=== PATIENT | female | born 1990 | race Caucasian/White ===

== ENCOUNTER 2021-09-07 18:11 | Emergency (ER) | payer OTHER ==
[~2021-09-07 18:11] MED LIST: COLACE 100MG C100 MG PO
== END 2021-09-07 21:15 | disposition home or self-care (01) ==
LOC: ER1 18:11
DX: S61.216A Laceration without foreign body of right little finger without damage to nail, initial encounter (principal); F17.290 Nicotine dependence, other tobacco product, uncomplicated; Z23 Encounter for immunization; W26.8XXA Contact with other sharp object(s), not elsewhere classified, initial encounter; Y92.009 Unspecified place in unspecified non-institutional (private) residence as the place of occurrence of the external cause
CPT/HCPCS: 12001; 90471; 90715; 99283